=== PATIENT | male | born 1945 | race Caucasian/White ===

== ENCOUNTER 2017-05-24 06:02 | Day surgery (SDC) | payer MEDICARE, BC ==
[~2017-05-24] VITALS: Ht 190.5 cm; Wt 111.1 kg
[~2017-05-24 06:02] MED LIST: ATEN50TA41 PO; ATOR10TA9 PO; HYDR25TA6 PO; LISI-167 PO; vitamin d PO
[2017-05-24] MEDS ORDERED: LACTATED RINGERS 1,000 ML IV SCH (07:00)
[2017-05-24] MEDS ORDERED: LIDOCAINE 1%, 2ML SQ PRN (07:00)
[2017-05-24 07:02] VITALS: BP 159/88
[2017-05-24] MEDS ORDERED: BUPIVACAINE/PF 0.5% ONE (07:06)
[2017-05-24] MEDS ORDERED: THROMBIN 5,000 UNIT VIAL TP ONE (07:06)
[2017-05-24] MEDS ORDERED: BACITRACIN 50,000 UNIT ONE (07:07)
[2017-05-24] MEDS ORDERED: PROPOFOL 10 MG/ML, 20ML ONE (07:52)
[2017-05-24] MEDS ORDERED: PROPOFOL 10 MG/ML, 50ML ONE (07:52)
[2017-05-24] MEDS ORDERED: CEFAZOLIN 1,000 MG ONE (07:52)
[2017-05-24] MEDS ORDERED: ONDANSETRON 2MG/ML, 2ML ONE (07:52)
[2017-05-24] MEDS ORDERED: DEXAMETHASONE 4 MG/ML, 1ML ONE (07:52)
[2017-05-24] MEDS ORDERED: SUCCINYLCHOLINE 20 MG/ML, 10ML ONE (07:52)
[2017-05-24] MEDS ORDERED: FENTANYL PF 100 MCG/2ML ONE ×3 (07:53)
[2017-05-24] MEDS ORDERED: FENTANYL PF 100 MCG/2ML IV PRN (09:00)
[2017-05-24] MEDS ORDERED: ACETAMINOPHEN 325 MG TABLET PO PRN (09:00)
[2017-05-24] MEDS ORDERED: METOPROLOL 1 MG/ML, 5ML IV PRN (09:00)
[2017-05-24] MEDS ORDERED: MIDAZOLAM 1 MG/ML, 2ML IV PRN (09:00)
[2017-05-24] MEDS ORDERED: HYDROmorphone 1 MG/ML, 1ML IV PRN (09:00)
[2017-05-24] MEDS ORDERED: ALBUTEROL SULFATE 2.5 MG/3 ML NPPB PRN (09:00)
[2017-05-24] MEDS ORDERED: OXYcodone 5 MG/5 ML ORAL.SOL UDC PO PRN (09:00)
[2017-05-24] MEDS ORDERED: MEPERIDINE/PF 25MG/0.5ML IVPush PRN (09:00)
[2017-05-24] MEDS ORDERED: PROMETHAZINE 25 MG/ML, 1ML IV PRN (09:00)
[2017-05-24] MEDS ORDERED: hydrALAzine 20 MG/ML, 1ML IV PRN (09:00)
== END 2017-05-24 12:15 ==
LOC: OUT 06:02
PROVIDERS: ATTEND Neurological Surgery
DX: M51.16 Intervertebral disc disorders with radiculopathy, lumbar region (principal); I10 Essential (primary) hypertension; E78.5 Hyperlipidemia, unspecified; E66.9 Obesity, unspecified
CPT/HCPCS: 63030; 63047; 72100; J0330; J0690; J1100; J2405; J2704; J3010; J3490; J7120

== ENCOUNTER 2017-05-24 15:02 | Emergency (ER) | payer MEDICARE, BC ==
[~2017-05-24] VITALS: Ht 190.5 cm; Wt 115.8 kg
[2017-05-24 17:58] VITALS: BP 141/82
== END 2017-05-24 18:01 | disposition home or self-care (01) ==
LOC: ED 17:43
DX: N40.1 Benign prostatic hyperplasia with lower urinary tract symptoms (principal); R33.8 Other retention of urine; I10 Essential (primary) hypertension
CPT/HCPCS: 51702; 81003

== ENCOUNTER 2017-05-26 09:34 | Emergency (ER) | payer MEDICARE, BC ==
[~2017-05-26] VITALS: Ht 190.5 cm; Wt 113.9 kg
[2017-05-26 09:35] VITALS: BP 144/74
== END 2017-05-26 11:11 | disposition home or self-care (01) ==
LOC: ED 09:58
DX: R33.9 Retention of urine, unspecified (principal); I10 Essential (primary) hypertension
CPT/HCPCS: 99284